=== PATIENT | female | born 2005 | race Caucasian/White ===

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

== ENCOUNTER 2024-06-18 22:30 | Emergency (ER) | payer OTHER ==
[~2024-06-18] VITALS: Ht 167.6 cm; Wt 49.9 kg
[2024-06-18] MEDS ORDERED: LEXAPRO5 MG (22:45)
[2024-06-18] MEDS ORDERED: 0.9 % SODIUM CHLORIDE 1,000 ML IV STA (22:57)
[2024-06-18] MEDS ORDERED: KETOROLAC TROMETHAMINE 30 MG VIAL IV STA (23:15)
[2024-06-18] MEDS ORDERED: KETOROLAC TROMETHAMINE 30 MG VIAL ONE (23:31)
[2024-06-18 23:46] LABS: HEMATOCRIT 37.7 % (36.0-45.00); HEMOGLOBIN 12.6 g/dL (12.0-15.00); MEAN CELL VOLUME 87.5 fL (80.00-100.00); MEAN CORPUSCULAR HEMOGLOBIN 29.2 pg (27.00-32.0); MEAN CORPUSCULAR HGB CONC 33.4 g/dl (32.0-36.0); PLATELET COUNT 236 K/uL (150-450); RED BLOOD COUNT 4.31 M/uL (4.00-6.00); RED CELL DISTRIBUTION WIDTH 13.2 % (11.5-14.5)
[2024-06-18 23:59] LABS: BILIRUBIN TOTAL 0.37 mg/dL (0.3-1.2); CALCIUM 9.1 mg/dL (8.5-10.1); CREATININE SERUM 0.7 mg/dL (0.55-1.02); GFR 106.68; GLOBULINA 3.4 G/DL (2.4-3.5); POTASSIUM 3.93 mEq/L (3.5-5.1); TOTAL PROTEIN 7.4 gm/dL (6.4-8.2)
[2024-06-19 01:20] LABS: PH,URINE 6.5 (5.0-8.0); URINE APPEARANCE Clear; URINE BILIRRUBIN Negative (NEGATIVE); URINE BLOOD Negative; URINE COLOR Yellow; URINE GLUCOSE Negative (NEGATIVE); URINE KETONE Trace (NEGATIVE); URINE LEUKOCYTE Negative; URINE NITRATE Negative; URINE PROTEIN Trace (NEGATIVE)
[2024-06-19 01:23] LABS: URINE BACTERIA 163.9 uL (0.0-1933); URINE RBC 16.2 uL (0.0-20.8); URINE WBC 29.1 uL (0.0-23.2)
[2024-06-19 01:50] LABS: URINE CAST 0.88 uL (0.0-1.40)
[2024-06-19] MEDS ORDERED: CEPHALEXIN500 MG PO (08:58)
== END 2024-06-19 09:12 | disposition home or self-care (01) ==
LOC: ER 22:32 → EMR PED 22:46 → ER 22:46 → EMR PED 06-19 09:12
DX: N83.299 Other ovarian cyst, unspecified side (principal); N30.90 Cystitis, unspecified without hematuria; R10.2 Pelvic and perineal pain; R10.9 Unspecified abdominal pain
CPT/HCPCS: 36415; 74177; 76856; Q9965